=== PATIENT | male | born 1965 | race Caucasian/White ===

== ENCOUNTER 2021-05-26 14:49 | Inpatient (IN) | payer MEDICAID, OTHER ==
[~2021-05-26] VITALS: Ht 182.9 cm; Wt 103.6 kg
[~2021-05-26 14:49] MED LIST: CLON0.1T PO; VILA40TA PO; ZOLP10TA5 PO
[2021-05-26 15:34] LABS: BASOPHILS # (AUTO) 0.1 X10'3 (0-0.2); BASOPHILS % (AUTO) 0.6 % (0-1); EOSINOPHILS # (AUTO) 0.2 X10'3 (0-0.9); EOSINOPHILS % (AUTO) 1.9 % (0-6); HEMATOCRIT 50.6 % (42.0-52.0); HEMOGLOBIN 16.7 g/dl (14.0-17.9); LYMPHOCYTES # (AUTO) 1.7 X10'3 (1.1-4.8); LYMPHOCYTES % (AUTO) 12.7 % (21-51); MEAN CORPUSCULAR HEMOGLOBIN 29.7 PG (27.0-31.0); MEAN PLATELET VOLUME 7.4 FL (7.4-10.4); MONOCYTES # (AUTO) 1.3 X10'3 (0-0.9); MONOCYTES % (AUTO) 9.9 % (2-12); NEUTROPHILS # (AUTO) 9.8 X10'3 (1.8-7.7); NEUTROPHILS % (AUTO) 74.9 % (42-75); PLATELET COUNT 363 X10'3 (140-440); RED BLOOD COUNT 5.62 X10'6 (4.70-6.10); RED CELL DISTRIBUTION WIDTH 13.8 % (11.5-14.5); WHITE BLOOD COUNT 13.1 X10'3 (4.5-11.0)
[2021-05-26 15:47] LABS: ALANINE AMINOTRANSFERASE 29 U/L (12-78); ALBUMIN 3.8 G/DL (3.4-5.0); ALKALINE PHOSPHATASE 123 IU/L (46-116); ANION GAP 10 (8-16); ASPARTATE AMINO TRANSFERASE 19 U/L (10-37); BILIRUBIN,TOTAL 0.5 MG/DL (0.1-1.0); BLOOD UREA NITROGEN 9 MG/DL (7-18); BUN/CREATININE RATIO 7.8 (5.4-32.0); CALCIUM 8.1 MG/DL (8.5-10.1); CHLORIDE 107 MMOL/L (99-107); CREATININE 1.15 MG/DL (0.60-1.10); GLUCOSE 97 MG/DL (70-104); LIPASE 73 U/L (73-393); POTASSIUM 4.2 MMOL/L (3.5-5.1); SODIUM 144 MMOL/L (135-145); TOTAL CARBON DIOXIDE 26.8 MMOL/L (24-32); TOTAL PROTEIN 7.6 G/DL (6.4-8.2); eGFR 66 ML/MIN
[2021-05-26] MEDS ORDERED: ondansetron 4mg rapidly disintigrating tab PO ONE (16:35)
[2021-05-26] MEDS ORDERED: normal saline 1000ML IV soln IV ONE (16:35)
[2021-05-26] MEDS ORDERED: piperacillin/tazo 3.375gm/50ml 50 ML IV ONE (16:35)
[2021-05-26] MEDS ORDERED: morphine 4 MG/ML inj SYRINge IV ONE ×2 (16:35→18:00)
[2021-05-26] MEDS ORDERED: BUPR-72 PO (16:58)
[2021-05-26] MEDS ORDERED: ALBU8HFA PO (16:58)
[2021-05-26] MEDS ORDERED: potassium Cl 40MEQ/1/2NS 520ml 520 ML IV PRN ×2 (18:20)
[2021-05-26] MEDS ORDERED: magnesium 4gm in 100ml NS 100 ML IV PRN (18:20)
[2021-05-26] MEDS ORDERED: ondansetron/PF 4mg/2ml inj IV PRN ×2 (18:20→22:55)
[2021-05-26] MEDS ORDERED: morphine 2 MG/ML inj. syringe IV PRN ×2 (18:20→22:55)
[2021-05-26] MEDS ORDERED: acetaminophen 325mg tablet PO PRN (18:20)
[2021-05-26] MEDS ORDERED: potassium Cl 20 mEq SR tablet PO PRN ×2 (18:20)
[2021-05-26] MEDS ORDERED: magnesium Cl slow-release 64mg tablet PO PRN (18:20)
[2021-05-26] MEDS ORDERED: magnesium 2GM in 50ml NS 50 ML IV PRN (18:20)
[2021-05-26] MEDS ORDERED: LIDOcaine 1% 30ml preserv. free vial ONE (18:43)
[2021-05-26] MEDS ORDERED: BUPIVAcaine 0.5% inj/PF 30 ML ONE (18:43)
[2021-05-26] MEDS: normal saline 1000ml 1,000 ML IV SCH (19:13)
[2021-05-26] MEDS: K and/or MAG REPLACEMENT MC SCH (20:00)
[2021-05-26] MEDS ORDERED: VILA40TA PO (20:47)
[2021-05-26] MEDS ORDERED: morphine 4 MG/ML inj SYRINge IV PRN (22:55)
[2021-05-26] MEDS ORDERED: meperidine/PF 25mg/ml syringe IV PRN ×3 (22:55)
[2021-05-26] MEDS ORDERED: proCHLORperazine 10 MG/2 ml inj IV PRN (22:55)
[2021-05-26] MEDS ORDERED: ringers solution, lacted 1,000 ML IV SCH (22:55)
[2021-05-26] MEDS ORDERED: sevoflurane 250ml liquid IH ONE (23:01)
[2021-05-26] MEDS ORDERED: fentaNYL /PF 50mcg/ml 5ml ampule ONE (23:03)
[2021-05-26] MEDS ORDERED: midazolam 1 mg/ML 2ml injection ONE (23:03)
[2021-05-26] MEDS ORDERED: ceFOXitin 1000 MG inj ONE ×2 (23:22)
[2021-05-27] VITALS (13 sets, daily range): BP systolic 99–124; BP diastolic 48–68
[2021-05-27] MEDS ORDERED: LIDOcaine 2% (20mg/ml) 5ml vial ONE
[2021-05-27] MEDS ORDERED: ondansetron/PF 4mg/2ml inj ONE
[2021-05-27] MEDS ORDERED: propofol inj 20 ML IV ONE
[2021-05-27] MEDS ORDERED: dexamethasone sod phosphate 4mg/ml inj. ONE
[2021-05-27] MEDS ORDERED: ePHEDrine 50MG/ML INJ. ONE
[2021-05-27] MEDS ORDERED: rocuronium 10mg/ml inj IV ONE
[2021-05-27] MEDS ORDERED: neostigmine methylsulfate 1 MG/ML 10ml vial ONE
[2021-05-27] MEDS ORDERED: acetaminophen 1,000mg/100ml IV 100 ML IV ONE
[2021-05-27] MEDS ORDERED: glycopyrrolate 0.2mg/ml inj ONE
--- NOTE | 2021-05-27 00:10 | NUR ---
Received from OR via BED, accompanied by Anesthesiologist DR. ROMAN and report given by Anesthesiologist. PT BROUGTH TO RECOVERY VIA BED, REPORT GIVEN BY DR ROMAN, ANESTHESIA, PATIENT WAKING UP, NO S/S OF PAIN, V/S WNL, SCD ON, 20G PIV TO LUE, LAP SURGICAL SITES X4 TO ABDOMEN-CDI.
[2021-05-27] MEDS ORDERED: HYDROcodone/acetaminophen 5mg/325mg tablet PO PRN (00:25)
[2021-05-27] MEDS ORDERED: HYDROcodone/acetaminophen 10/325mg tab PO PRN (00:25)
--- NOTE | 2021-05-27 01:10 | NUR ---
PT AWAKE, VSS, DENIES PAIN, PIV 20G TO LEFT ARM-LR RUNNING AT 100ML/HR, SCDS IN PLACE, LAP SITES X4 TO ABD-CDI, REPORT CALLED TO GLEN FISCHER-ALL QUESTIONS ANSWERED, PATIENT TAKEN TO ROOM 4021B WITH ALL BELONGINGS AND HOOKED UP TO MONITORS IN ROOM AND GIVEN CALL LIGHT, BED LOW AND LOCKED, PRIMARY RN IN ROOM WHO HAS TAKEN OVER PATIENT CARE.
[2021-05-27] MEDS: normal saline 1000ml 1,000 ML IV SCH (01:57)
[2021-05-27 06:20] LABS: BASOPHILS % (AUTO) 0.2 % (0-1); EOSINOPHILS % (AUTO) 0.1 % (0-6); HEMATOCRIT 47.7 % (42.0-52.0); HEMOGLOBIN 15.8 g/dl (14.0-17.9); LYMPHOCYTES # (AUTO) 0.6 X10'3 (1.1-4.8); LYMPHOCYTES % (AUTO) 6.5 % (21-51); MEAN CORPUSCULAR HGB CONC 33.1 g/dL (33.0-36.5); MEAN CORPUSCULAR VOLUME 90.8 FL (78-98); MEAN PLATELET VOLUME 7.8 FL (7.4-10.4); MONOCYTES # (AUTO) 0.3 X10'3 (0-0.9); MONOCYTES % (AUTO) 2.5 % (2-12); NEUTROPHILS % (AUTO) 90.7 % (42-75); PLATELET COUNT 339 X10'3 (140-440); RED BLOOD COUNT 5.25 X10'6 (4.70-6.10); RED CELL DISTRIBUTION WIDTH 14.3 % (11.5-14.5); WHITE BLOOD COUNT 9.9 X10'3 (4.5-11.0)
--- NOTE | 2021-05-27 06:42 | NUR ---
Patient in room ORTHO 4021. I have received report from GLEN FISCEHR and had the opportunity to ask questions and assume patient care.
[2021-05-27 06:44] LABS: ALBUMIN 3.4 G/DL (3.4-5.0); ANION GAP 10 (8-16); BLOOD UREA NITROGEN 10 MG/DL (7-18); BUN/CREATININE RATIO 8.7 (5.4-32.0); CALCIUM 8.2 MG/DL (8.5-10.1); CHLORIDE 110 MMOL/L (99-107); CREATININE 1.15 MG/DL (0.60-1.10); GLUCOSE 137 MG/DL (70-104); POTASSIUM 4.6 MMOL/L (3.5-5.1); SODIUM 143 MMOL/L (135-145); TOTAL CARBON DIOXIDE 22.6 MMOL/L (24-32); eGFR 66 ML/MIN
[2021-05-27] MEDS: K and/or MAG REPLACEMENT MC SCH (08:00)
--- NOTE | 2021-05-27 11:09 | NUR ---
PAGER ID: [phone] MESSAGE: CHARLETTE VIDALES [id number] RE: Zeeshan MILLER I SPOKE WITH DR. KIMBALL HE IS OKAY FOR PATIENT TO BE DISCHARGED AT THIS TIME. THANKS CHARLETTE
--- NOTE | 2021-05-27 11:29 | NUR ---
PAGER ID: [phone] MESSAGE: CHARLETTE VIDALES [id number] RE: Zeeshan MILLER I SPOKE WITH DR. KIMBALL HE IS OKAY FOR PATIENT TO BE DISCHARGED AT THIS TIME. PATIENT READY TO LEAVE AMA. THANKS CHARLETTE
--- NOTE | 2021-05-27 12:15 | NUR ---
PATIENT LEFT AMA BOTH IV'S TAKEN OUT AT THIS TIME CANULA WHOLE AND INTACT UPON INSPECTION. PATIENT DID NOT WANT TO WAIT FOR HOSPITALIST TO DISCHARGE. NOT MORE THAN 10 MINUTES AFTER AMA PATIENTS DISCHARGE WAS PLACE BY THE MD. PATIENT DID NOT GO HOME WITH ANY MEDICATIONS, AND WAS ENCOURAGED TO FOLLOW UP WITH PRIMARY AND WITH SURGEON. PATIENT WALKED OUT ON HIS OWN AND LEFT WITH ALL BELONGINGS.
== END 2021-05-27 15:18 | disposition home or self-care (01) | DRG 343 ==
LOC: ER 14:50 → ED HOLD 18:18 → ORTHO 4S 05-27 01:10
PROVIDERS: ADMIT Internal Medicine; ATTEND Internal Medicine
PROC: 0DTJ4ZZ Resection of Appendix, Percutaneous Endoscopic Approach (ICD-10-PCS; principal; 2021-05-27)
PROC: 0WQF4ZZ Repair Abdominal Wall, Percutaneous Endoscopic Approach (ICD-10-PCS; 2021-05-27)
PROC: 8E0W4CZ Robotic Assisted Procedure of Trunk Region, Percutaneous Endoscopic Approach (ICD-10-PCS; 2021-05-27)
DX: K35.80 Unspecified acute appendicitis (principal); F41.9 Anxiety disorder, unspecified; Z20.822 Contact with and (suspected) exposure to COVID-19; G47.00 Insomnia, unspecified; F17.220 Nicotine dependence, chewing tobacco, uncomplicated; K42.9 Umbilical hernia without obstruction or gangrene; J45.909 Unspecified asthma, uncomplicated; E66.9 Obesity, unspecified; Z68.31 Body mass index [BMI] 31.0-31.9, adult; Z90.49 Acquired absence of other specified parts of digestive tract; Z79.899 Other long term (current) drug therapy
CPT/HCPCS: 99285; Z7506; Z7508; 36415; 74176; 80048; 80053; 83690; 83735; 85025; 87081; 87635; 93005; A4215; A4618; C9803; G0378; J0131; J0694; J1100; J2001; J2250; J2270; J2405; J2543; J2704; J2710; J3010; J3490; J7030; J7120

== ENCOUNTER 2022-09-11 09:48 | Emergency (ER) | payer SELFPAY ==
[~2022-09-11] VITALS: Ht 182.9 cm; Wt 102.0 kg
[~2022-09-11 09:48] MED LIST changes: +ALBU8HFA PO; +BUPR-72 PO; -CLON0.1T PO
[2022-09-11] MEDS ORDERED: predniSONE 20 mg tablet PO ONE (11:20)
[2022-09-11] MEDS ORDERED: ipratropium/albuterol 3ml nebule NEB ONE (11:20)
[2022-09-11 11:21] LABS: BASOPHILS # (AUTO) 0.1 X10'3 (0-0.2); BASOPHILS % (AUTO) 0.4 % (0-1); EOSINOPHILS # (AUTO) 0.1 X10'3 (0-0.9); EOSINOPHILS % (AUTO) 0.4 % (0-6); HEMATOCRIT 46.3 % (42.0-52.0); HEMOGLOBIN 15.8 g/dl (14.0-17.9); LYMPHOCYTES # (AUTO) 0.6 X10'3 (1.1-4.8); LYMPHOCYTES % (AUTO) 4.8 % (21-51); MEAN CORPUSCULAR HEMOGLOBIN 30.7 PG (27.0-31.0); MEAN CORPUSCULAR VOLUME 90.1 FL (78-98); MEAN PLATELET VOLUME 7.2 FL (7.4-10.4); MONOCYTES # (AUTO) 1.2 X10'3 (0-0.9); MONOCYTES % (AUTO) 9.4 % (2-12); NEUTROPHILS # (AUTO) 11.2 X10'3 (1.8-7.7); PLATELET COUNT 271 X10'3 (140-440); RED BLOOD COUNT 5.14 X10'6 (4.70-6.10); RED CELL DISTRIBUTION WIDTH 13.9 % (11.5-14.5); WHITE BLOOD COUNT 13.2 X10'3 (4.5-11.0)
[2022-09-11 11:50] LABS: ALANINE AMINOTRANSFERASE 29 U/L (12-78); ALBUMIN 3.5 G/DL (3.4-5.0); ALBUMIN/GLOBULIN RATIO 0.9 (1.1-1.5); ALKALINE PHOSPHATASE 88 IU/L (46-116); ANION GAP 9 (8-16); ASPARTATE AMINO TRANSFERASE 30 U/L (10-37); BILIRUBIN,TOTAL 0.4 MG/DL (0.1-1.0); BLOOD UREA NITROGEN 12 MG/DL (7-18); BUN/CREATININE RATIO 9.8 (5.4-32.0); CALCIUM 8.5 MG/DL (8.5-10.1); CHLORIDE 105 MMOL/L (99-107); CREATININE 1.22 MG/DL (0.60-1.10); GLUCOSE 110 MG/DL (70-104); POTASSIUM 4.1 MMOL/L (3.5-5.1); SODIUM 138 MMOL/L (135-145); TOTAL CARBON DIOXIDE 23.8 MMOL/L (24-32); TOTAL PROTEIN 7.2 G/DL (6.4-8.2); eGFR 61 ML/MIN
[2022-09-11] MEDS ORDERED: AZIT-83 PO (13:21)
[2022-09-11 13:31] VITALS: BP 160/72
== END 2022-09-11 13:42 | disposition home or self-care (01) ==
LOC: ER 09:49
DX: J06.9 Acute upper respiratory infection, unspecified (principal); Z20.822 Contact with and (suspected) exposure to COVID-19; R06.02 Shortness of breath; J45.901 Unspecified asthma with (acute) exacerbation; Z90.49 Acquired absence of other specified parts of digestive tract
CPT/HCPCS: 36415; 71045; 80053; 83880; 84484; 85025; 87502; 87503; 87635; 93005; 94640; 99285; C9803; J7512